=== PATIENT | male | born 1995 | race Caucasian/White ===

== ENCOUNTER → 2021-01-01 | Emergency (ER) | payer OTHER ==
[2021-01-01 12:53] LABS: HEMOGLOBIN 15.4 gm/dl (14.0-17.5); RED BLOOD COUNT 5.1 M/UL (4.20-5.50); WHITE BLOOD COUNT 5.5 K/UL (4.5-11.0)
[2021-01-01 13:12] LABS: BUN/CREATININE RATIO 12 (0-10)
== END | disposition home or self-care (01) ==
LOC: ER1 10:58
PROVIDERS: Physician Assistant
DX: J06.9 Acute upper respiratory infection, unspecified (principal); Z79.899 Other long term (current) drug therapy
CPT/HCPCS: 71045; 80053; 85025; 99285